=== PATIENT | male | born 1960 | race Two or more races ===

== ENCOUNTER → 2020-04-13 | Emergency (ER) | payer SELFPAY ==
[~2020-04-13] VITALS: Ht 172.7 cm; Wt 72.6 kg
[~2020-04-13] MED LIST: SODIUM CHLORIDE 0.9% 1,000 ML IV ONE; SODIUM CHLORIDE 0.9% 1,000 ML IVB ONE; THIAMINE 100mg/ml INJ (200mg/2ml VIAL) IV ONE
[2020-04-13 15:44] LABS: Basophils # (auto) 0 10 ^3/uL (0-0.2); Basophils % (auto) 0.1 % (0.0-2.0); Eosinophils # (auto) 0 10 ^3/uL (0-0.8); Hematocrit 42.8 % (41.0-53.0); Hemoglobin 14.6 g/dL (13.5-17.5); Lymphocytes # (auto) 1.3 10 ^3/uL (0.4-5.4); Lymphocytes % (auto) 10.4 % (10.0-50.0); Mean Corpuscular Hemoglobin 32.2 pg (28.0-32.0); Mean Corpuscular Hgb Conc. 34.2 g/dL (32.0-36.0); Mean Corpuscular Volume 94.2 fL (80.0-100.0); Monocytes # (auto) 0.4 10 ^3/uL (0-1.3); Monocytes % (auto) 3.1 % (0.0-12.0); Neutrophils # (auto) 11.1 10 ^3/uL (1.6-8.6); Neutrophils % (auto) 86.4 % (37.0-80.0); Platelet Count (auto) 191 10^3/uL (140-450); Red Blood Cells 4.54 10^6/uL (4.5-5.90); Red Cell Distribution Width 13.4 % (11.8-14.3); White Blood Cell 12.8 10^3/uL (4.4-10.8)
[2020-04-13 15:58] LABS: Albumin 3.5 g/dL (3.4-5.0); BUN/Creatinine Ratio 20.4; Potassium 3.5 mmol/L (3.5-5.1)
[2020-04-13 16:01] LABS: Bilirubin, Total 0.7 mg/dL (0.2-1.0)
[2020-04-13 18:00] VITALS: BP 109/63
== END | disposition home or self-care (01) ==
LOC: ER 12:16 → EDBD 12:16
DX: F10.129 Alcohol abuse with intoxication, unspecified (principal); R07.89 Other chest pain; D72.829 Elevated white blood cell count, unspecified; E86.0 Dehydration; F17.210 Nicotine dependence, cigarettes, uncomplicated; Y90.9 Presence of alcohol in blood, level not specified
CPT/HCPCS: 36415; 71045; 80053; 80320; 85025; 96361; 96374; 99285; J3411; J7030

== ENCOUNTER 2020-04-14 00:36 | Inpatient (IN) | payer MEDICAID, OTHER ==
[~2020-04-14] VITALS: Ht 167.6 cm; Wt 74.1 kg
[2020-04-14 01:09] LABS: Basophils # (auto) 0 10 ^3/uL (0-0.2); Basophils % (auto) 0.2 % (0.0-2.0); Eosinophils # (auto) 0 10 ^3/uL (0-0.8); Hematocrit 40.2 % (41.0-53.0); Lymphocytes # (auto) 1.6 10 ^3/uL (0.4-5.4); Lymphocytes % (auto) 12.2 % (10.0-50.0); Mean Corpuscular Hgb Conc. 34.9 g/dL (32.0-36.0); Mean Corpuscular Volume 94.7 fL (80.0-100.0); Monocytes # (auto) 0.5 10 ^3/uL (0-1.3); Neutrophils # (auto) 11.1 10 ^3/uL (1.6-8.6); Neutrophils % (auto) 83.6 % (37.0-80.0); Nucleated Red Blood Cells % 0.1 %; Platelet Count (auto) 189 10^3/uL (140-450); Red Blood Cells 4.25 10^6/uL (4.5-5.90); Red Cell Distribution Width 13.4 % (11.8-14.3); White Blood Cell 13.3 10^3/uL (4.4-10.8)
[2020-04-14 01:26] LABS: Albumin 3.3 g/dL (3.4-5.0); Anion Gap 16 (5-15); Blood Urea Nitrogen 16 mg/dL (7-18); Calcium 7.7 mg/dL (8.5-10.1); Carbon Dioxide 15 mmol/L (21-32); Chloride 105 mmol/L (98-107); GFR African American 120 mL/min; GFR Non-African American 99 mL/min; Glucose 81 mg/dL (74-106); Magnesium 2.1 mg/dL (1.6-2.6); Potassium 3.3 mmol/L (3.5-5.1); Sodium 136 mmol/L (136-145)
[2020-04-14 01:34] LABS: INR 1.03 (0.9-1.15); Partial Thromboplastin Time 25.2 sec (23.0-31.2)
[2020-04-14 01:40] LABS: Alanine Aminotransferase 36 U/L (16-61); Alkaline Phosphatase 70 U/L (45-117); Aspartate Aminotransferase 46 U/L (15-37); Bilirubin, Total 0.8 mg/dL (0.2-1.0); Total Protein 6.7 g/dL (6.4-8.2)
[2020-04-14 02:05] LABS: Amylase 108 U/L (25-115); Lipase 846 U/L (73-393)
[2020-04-14] MEDS ORDERED: IOHEXOL 350 MG/ML 100ML IJ ONE (02:15)
[2020-04-14 03:41] LABS: Urine Amorphous Crystal FEW /hpf (None Seen); Urine Bacteria FEW /hpf (None Seen); Urine Blood 1+ /uL (Negative); Urine Hyaline Cast FEW /lpf (0 - 2); Urine Mucus FEW (None Seen); Urine Specific Gravity 1.018 (1.001-1.035); Urine WBC 2 /hpf (0 - 3)
[2020-04-14 03:56] LABS: Amphetamine Screen, Urine NEGATIVE (NEGATIVE); Barbiturate Scree,Urine NEGATIVE (NEGATIVE); Benzodiazephine Screen, Urine NEGATIVE (NEGATIVE); Cannabinoid Screen, Urine NEGATIVE (NEGATIVE); Cocaine Screen, Urine NEGATIVE (NEGATIVE); Opiate Scree,Urine NEGATIVE (NEGATIVE); Phencyclidine Screen, Urine NEGATIVE (NEGATIVE)
[2020-04-14] MEDS ORDERED: THIAMINE INJ 100 MG in SODIUM CHLORIDE 0.9% 1,000 ML IV ONE (06:45)
[2020-04-14] MEDS ORDERED: MORPHINE SULFATE 4 MG/ML SYR/VIAL IV ONE (06:45)
[2020-04-14] MEDS ORDERED: ONDANSETRON HCL 4 MG/2 ML VIAL IV ONE (06:45)
[2020-04-14] MEDS ORDERED: PIPERACILLIN-TAZOB 3.375GM 100 ML IV ONE (06:45)
[2020-04-14] MEDS ORDERED: NITROGLYCERIN 0.4 MG SL TAB SL PRN (07:00)
[2020-04-14] MEDS ORDERED: MORPHINE SULF INJ 2 MG/ML SYRINGE 1ML IV PRN (07:00)
[2020-04-14] MEDS ORDERED: ACETAMINOPHEN 325 MG TAB PO PRN (07:00)
[2020-04-14] MEDS ORDERED: VANCOMYCIN 1GM/250ML 250 ML IV ONE (08:00)
[2020-04-14 08:26] LABS: Lactic Acid w/Reflex 3.8 mmol/L (0.4-2.0)
[2020-04-14] MEDS ORDERED: cefTRIAXone 1GM/50ML D5W 50 ML IV SCH (09:00)
[2020-04-14] MEDS: SODIUM CHLORIDE 0.9% 1,000 ML IV SCH ×2 (09:33→20:20)
[2020-04-14] MEDS: FAMOTIDINE 20 MG TAB PO SCH ×2 (09:52→21:27)
[2020-04-14] MEDS: chlordiazePOXIDE HCL 25 MG CAP PO PRN (09:57)
[2020-04-14] MEDS: FOLIC ACID 1 MG, MULTIPLE VITAMIN 10 ML, MAGNESIUM SULF SDV 50% 8 MEQ, THIAMINE INJ 100... INJ SCH ×5 (10:51)
[2020-04-14] MEDS ORDERED: VANCOMYCIN PER PHARMACY 0 MG IV SCH (14:30)
[2020-04-14] MEDS ORDERED: POTASSIUM EFFERVESENT TAB 25 MEQ PO ONE (14:30)
[2020-04-14] MEDS: PIPERACILLIN-TAZOB 3.375GM 100 ML IV SCH ×2 (18:36→23:08)
[2020-04-14] MEDS: VANCOMYCIN 1GM/250ML 250 ML IV SCH (20:28)
[2020-04-14] MEDS: MORPHINE SULFATE 4 MG/ML SYR/VIAL IV PRN (20:29)
[2020-04-14] MEDS: ONDANSETRON HCL 4 MG/2 ML VIAL IV PRN (21:27)
[2020-04-14] MEDS: TEMAZEPAM 15 MG CAP PO PRN (21:30)
[2020-04-14 22:00] VITALS: BP 134/73
[2020-04-15] MEDS: ONDANSETRON HCL 4 MG/2 ML VIAL IV PRN ×3 (04:38→15:50)
[2020-04-15 05:00] VITALS: BP 126/70
[2020-04-15] MEDS: PIPERACILLIN-TAZOB 3.375GM 100 ML IV SCH ×4 (05:10→23:13)
[2020-04-15] MEDS: MORPHINE SULFATE 4 MG/ML SYR/VIAL IV PRN ×2 (05:43→15:50)
[2020-04-15 07:15] LABS: Basophils # (auto) 0 10 ^3/uL (0-0.2); Basophils % (auto) 0.3 % (0.0-2.0); Eosinophils # (auto) 0 10 ^3/uL (0-0.8); Eosinophils % (auto) 0.4 % (0.0-7.0); Hematocrit 37.8 % (41.0-53.0); Hemoglobin 13.5 g/dL (13.5-17.5); Lymphocytes # (auto) 1.1 10 ^3/uL (0.4-5.4); Lymphocytes % (auto) 13.4 % (10.0-50.0); Mean Corpuscular Hemoglobin 33.5 pg (28.0-32.0); Mean Corpuscular Hgb Conc. 35.8 g/dL (32.0-36.0); Mean Corpuscular Volume 93.7 fL (80.0-100.0); Monocytes # (auto) 0.4 10 ^3/uL (0-1.3); Monocytes % (auto) 5.4 % (0.0-12.0); Neutrophils # (auto) 6.4 10 ^3/uL (1.6-8.6); Neutrophils % (auto) 80.5 % (37.0-80.0); Platelet Count (auto) 150 10^3/uL (140-450); Red Blood Cells 4.04 10^6/uL (4.5-5.90); Red Cell Distribution Width 13.2 % (11.8-14.3)
[2020-04-15 07:43] LABS: BUN/Creatinine Ratio 15.9; Calcium 7.8 mg/dL (8.5-10.1); Total Protein 5.9 g/dL (6.4-8.2)
[2020-04-15 08:00] VITALS: BP 130/57
[2020-04-15 09:00] VITALS: BP 130/57
[2020-04-15] MEDS: SODIUM CHLORIDE 0.9% 1,000 ML IV SCH ×2 (09:40→22:03)
[2020-04-15] MEDS: FAMOTIDINE 20 MG TAB PO SCH ×2 (09:49→21:59)
[2020-04-15] MEDS: VANCOMYCIN 1GM/250ML 250 ML IV SCH ×2 (09:49→20:28)
[2020-04-15] MEDS: HYDROcodone-ACET 5/325MG TAB PO PRN (09:50)
[2020-04-15] MEDS: FOLIC ACID 1 MG, MULTIPLE VITAMIN 10 ML, MAGNESIUM SULF SDV 50% 8 MEQ, THIAMINE INJ 100... INJ SCH ×5 (12:20)
[2020-04-15 13:00] VITALS: BP 148/81
[2020-04-15] MEDS ORDERED: PANTOPRAZOLE 40 MG TAB PO ONE (14:45)
[2020-04-15] MEDS ORDERED: POTASSIUM EFFERVESENT TAB 25 MEQ PO ONE (15:00)
[2020-04-15] MEDS: SUCRALFATE 1 GM/10 ML ORAL SUSP PO SCH ×2 (16:20→21:58)
[2020-04-15 17:04] VITALS: BP 121/88
[2020-04-15] MEDS: TEMAZEPAM 15 MG CAP PO PRN (21:58)
[2020-04-15] MEDS: PANTOPRAZOLE 40 MG TAB PO SCH (21:59)
[2020-04-15 22:00] VITALS: BP 129/78
[2020-04-16] MEDS: ONDANSETRON HCL 4 MG/2 ML VIAL IV PRN ×3 (03:01→13:49)
[2020-04-16] MEDS: MORPHINE SULFATE 4 MG/ML SYR/VIAL IV PRN ×2 (03:02→13:48)
[2020-04-16 05:00] VITALS: BP 142/73
[2020-04-16] MEDS: HYDROcodone-ACET 5/325MG TAB PO PRN ×2 (05:31→21:29)
[2020-04-16] MEDS: PIPERACILLIN-TAZOB 3.375GM 100 ML IV SCH ×3 (05:31→18:00)
[2020-04-16] MEDS: SUCRALFATE 1 GM/10 ML ORAL SUSP PO SCH ×4 (06:13→21:29)
[2020-04-16 08:00] VITALS: BP 137/80
[2020-04-16 08:01] LABS: Basophils # (auto) 0 10 ^3/uL (0-0.2); Basophils % (auto) 0.4 % (0.0-2.0); Eosinophils # (auto) 0.1 10 ^3/uL (0-0.8); Eosinophils % (auto) 0.7 % (0.0-7.0); Hematocrit 40.6 % (41.0-53.0); Hemoglobin 13.8 g/dL (13.5-17.5); Lymphocytes # (auto) 1.1 10 ^3/uL (0.4-5.4); Lymphocytes % (auto) 14.1 % (10.0-50.0); Mean Corpuscular Hemoglobin 32.1 pg (28.0-32.0); Mean Corpuscular Hgb Conc. 34.1 g/dL (32.0-36.0); Mean Corpuscular Volume 94.4 fL (80.0-100.0); Monocytes # (auto) 0.5 10 ^3/uL (0-1.3); Monocytes % (auto) 6.2 % (0.0-12.0); Neutrophils # (auto) 6.3 10 ^3/uL (1.6-8.6); Neutrophils % (auto) 78.6 % (37.0-80.0); Nucleated Red Blood Cells % 0.1 %; Platelet Count (auto) 155 10^3/uL (140-450); Red Cell Distribution Width 13.1 % (11.8-14.3)
[2020-04-16 08:37] LABS: BUN/Creatinine Ratio 8.7
[2020-04-16] MEDS: VANCOMYCIN 1GM/250ML 250 ML IV SCH ×3 (08:48→23:16)
[2020-04-16] MEDS: chlordiazePOXIDE HCL 25 MG CAP PO PRN (08:59)
[2020-04-16] MEDS: FAMOTIDINE 20 MG TAB PO SCH ×2 (08:59→21:29)
[2020-04-16] MEDS: PANTOPRAZOLE 40 MG TAB PO SCH ×2 (08:59→21:29)
[2020-04-16 09:00] VITALS: BP 137/80
[2020-04-16] MEDS ORDERED: POTASSIUM EFFERVESENT TAB 25 MEQ PO ONE (12:00)
[2020-04-16] MEDS: SODIUM CHLORIDE 0.9% 1,000 ML IV SCH (12:20)
[2020-04-16 13:00] VITALS: BP 128/76
[2020-04-16] MEDS: FOLIC ACID 1 MG, MULTIPLE VITAMIN 10 ML, MAGNESIUM SULF SDV 50% 8 MEQ, THIAMINE INJ 100... INJ SCH ×5 (14:27)
[2020-04-16 17:00] VITALS: BP 135/81
[2020-04-16] MEDS: TEMAZEPAM 15 MG CAP PO PRN (21:30)
[2020-04-16 22:00] VITALS: BP 114/72
[2020-04-17] MEDS: PIPERACILLIN-TAZOB 3.375GM 100 ML IV SCH ×4 (00:20→18:23)
[2020-04-17] MEDS: SODIUM CHLORIDE 0.9% 1,000 ML IV SCH ×2 (00:34→15:00)
[2020-04-17] MEDS: ONDANSETRON HCL 4 MG/2 ML VIAL IV PRN ×2 (02:48→09:44)
[2020-04-17] MEDS: MORPHINE SULFATE 4 MG/ML SYR/VIAL IV PRN ×2 (02:49→09:44)
[2020-04-17 05:22] VITALS: BP 135/82
[2020-04-17] MEDS: SUCRALFATE 1 GM/10 ML ORAL SUSP PO SCH ×4 (06:33→22:01)
[2020-04-17 07:01] LABS: Basophils # (auto) 0 10 ^3/uL (0-0.2); Basophils % (auto) 0.4 % (0.0-2.0); Eosinophils # (auto) 0.1 10 ^3/uL (0-0.8); Eosinophils % (auto) 1.3 % (0.0-7.0); Hematocrit 41.7 % (41.0-53.0); Lymphocytes # (auto) 1.1 10 ^3/uL (0.4-5.4); Lymphocytes % (auto) 16.3 % (10.0-50.0); Mean Corpuscular Hemoglobin 31.7 pg (28.0-32.0); Mean Corpuscular Hgb Conc. 33.6 g/dL (32.0-36.0); Mean Corpuscular Volume 94.4 fL (80.0-100.0); Monocytes # (auto) 0.3 10 ^3/uL (0-1.3); Monocytes % (auto) 4.9 % (0.0-12.0); Neutrophils # (auto) 5.1 10 ^3/uL (1.6-8.6); Neutrophils % (auto) 77.1 % (37.0-80.0); Nucleated Red Blood Cells % 0.1 %; Platelet Count (auto) 165 10^3/uL (140-450); Red Blood Cells 4.42 10^6/uL (4.5-5.90); Red Cell Distribution Width 13.3 % (11.8-14.3); White Blood Cell 6.6 10^3/uL (4.4-10.8)
[2020-04-17 07:36] LABS: BUN/Creatinine Ratio 7.2; Calcium 8.1 mg/dL (8.5-10.1)
[2020-04-17 07:59] LABS: Potassium 2.7 mmol/L (3.5-5.1)
[2020-04-17 08:00] VITALS: BP 125/80
[2020-04-17] MEDS ORDERED: POTASSIUM CHL 20 Meq TABLET PO ONE ×2 (08:30→15:00)
[2020-04-17 09:00] VITALS: BP 125/80
[2020-04-17] MEDS: VANCOMYCIN 1GM/250ML 250 ML IV SCH ×3 (09:43→23:49)
[2020-04-17] MEDS: PANTOPRAZOLE 40 MG TAB PO SCH ×2 (09:44→22:01)
[2020-04-17] MEDS: FAMOTIDINE 20 MG TAB PO SCH ×2 (09:44→22:01)
[2020-04-17 13:00] VITALS: BP 144/59
[2020-04-17] MEDS: HYDROcodone-ACET 5/325MG TAB PO PRN (13:39)
[2020-04-17 14:35] LABS: BUN/Creatinine Ratio 6.4
[2020-04-17 17:00] VITALS: BP 133/75
[2020-04-17] MEDS: FOLIC ACID 1 MG, MULTIPLE VITAMIN 10 ML, MAGNESIUM SULF SDV 50% 8 MEQ, THIAMINE INJ 100... INJ SCH ×5 (17:00)
[2020-04-17 22:00] VITALS: BP 146/80
[2020-04-17] MEDS: TEMAZEPAM 15 MG CAP PO PRN (22:14)
[2020-04-18] MEDS: PIPERACILLIN-TAZOB 3.375GM 100 ML IV SCH ×2 (00:01→05:50)
[2020-04-18 05:00] VITALS: BP 156/95
[2020-04-18] MEDS: SODIUM CHLORIDE 0.9% 1,000 ML IV SCH ×2 (05:50→17:40)
[2020-04-18] MEDS: SUCRALFATE 1 GM/10 ML ORAL SUSP PO SCH ×4 (06:20→22:00)
[2020-04-18 06:48] LABS: Basophils # (auto) 0 10 ^3/uL (0-0.2); Basophils % (auto) 0.5 % (0.0-2.0); Eosinophils # (auto) 0.1 10 ^3/uL (0-0.8); Eosinophils % (auto) 1.1 % (0.0-7.0); Hematocrit 42.2 % (41.0-53.0); Hemoglobin 14.8 g/dL (13.5-17.5); Lymphocytes # (auto) 1.4 10 ^3/uL (0.4-5.4); Lymphocytes % (auto) 21.2 % (10.0-50.0); Mean Corpuscular Hemoglobin 32.8 pg (28.0-32.0); Mean Corpuscular Hgb Conc. 35.1 g/dL (32.0-36.0); Mean Corpuscular Volume 93.3 fL (80.0-100.0); Monocytes # (auto) 0.4 10 ^3/uL (0-1.3); Monocytes % (auto) 6.1 % (0.0-12.0); Neutrophils # (auto) 4.5 10 ^3/uL (1.6-8.6); Neutrophils % (auto) 71.1 % (37.0-80.0); Nucleated Red Blood Cells % 0.1 %; Platelet Count (auto) 184 10^3/uL (140-450); Red Blood Cells 4.52 10^6/uL (4.5-5.90); White Blood Cell 6.4 10^3/uL (4.4-10.8)
[2020-04-18 07:20] LABS: Albumin 3.2 g/dL (3.4-5.0); BUN/Creatinine Ratio 6.3; Bilirubin, Total 0.7 mg/dL (0.2-1.0); Calcium 8.1 mg/dL (8.5-10.1); Total Protein 6.6 g/dL (6.4-8.2)
[2020-04-18 07:35] LABS: Potassium 2.9 mmol/L (3.5-5.1)
[2020-04-18] MEDS: VANCOMYCIN 1GM/250ML 250 ML IV SCH (07:42)
[2020-04-18] MEDS ORDERED: POTASSIUM CHL 20 Meq TABLET PO ONE (08:30)
[2020-04-18 09:00] VITALS: BP 140/88
[2020-04-18] MEDS: FAMOTIDINE 20 MG TAB PO SCH ×2 (09:56→22:00)
[2020-04-18] MEDS: PANTOPRAZOLE 40 MG TAB PO SCH ×2 (09:56→22:00)
[2020-04-18] MEDS: HYDROcodone-ACET 5/325MG TAB PO PRN (09:57)
[2020-04-18] MEDS: levoFLOXacin 500MG 100 ML IV SCH (11:32)
[2020-04-18] MEDS: FOLIC ACID 1 MG, MULTIPLE VITAMIN 10 ML, MAGNESIUM SULF SDV 50% 8 MEQ, THIAMINE INJ 100... INJ SCH ×5 (13:28)
[2020-04-18] MEDS: MORPHINE SULFATE 4 MG/ML SYR/VIAL IV PRN (13:29)
[2020-04-18] MEDS: metroNIDAZOLE 500MG/100ML 100 ML IV SCH ×2 (13:29→22:00)
[2020-04-18] MEDS: ONDANSETRON HCL 4 MG/2 ML VIAL IV PRN (13:29)
[2020-04-18 14:20] VITALS: BP 105/57
[2020-04-18] MEDS: TEMAZEPAM 15 MG CAP PO PRN (22:00)
[2020-04-18] MEDS ORDERED: LOPERAMIDE HCL 2 MG CAP PO PRN (22:45)
[2020-04-19 05:00] VITALS: BP 131/68
[2020-04-19] MEDS: metroNIDAZOLE 500MG/100ML 100 ML IV SCH ×3 (06:00→21:42)
[2020-04-19] MEDS: SODIUM CHLORIDE 0.9% 1,000 ML IV SCH (06:33)
[2020-04-19] MEDS: SUCRALFATE 1 GM/10 ML ORAL SUSP PO SCH ×4 (06:34→21:42)
[2020-04-19 06:59] LABS: Basophils # (auto) 0 10 ^3/uL (0-0.2); Basophils % (auto) 0.3 % (0.0-2.0); Eosinophils # (auto) 0 10 ^3/uL (0-0.8); Eosinophils % (auto) 0.6 % (0.0-7.0); Hematocrit 42.7 % (41.0-53.0); Hemoglobin 14.9 g/dL (13.5-17.5); Lymphocytes # (auto) 1.4 10 ^3/uL (0.4-5.4); Lymphocytes % (auto) 18.4 % (10.0-50.0); Mean Corpuscular Hemoglobin 32.9 pg (28.0-32.0); Mean Corpuscular Hgb Conc. 34.8 g/dL (32.0-36.0); Mean Corpuscular Volume 94.5 fL (80.0-100.0); Monocytes # (auto) 0.7 10 ^3/uL (0-1.3); Monocytes % (auto) 9.1 % (0.0-12.0); Neutrophils # (auto) 5.5 10 ^3/uL (1.6-8.6); Neutrophils % (auto) 71.6 % (37.0-80.0); Nucleated Red Blood Cells % 0.1 %; Platelet Count (auto) 178 10^3/uL (140-450); Red Blood Cells 4.52 10^6/uL (4.5-5.90); Red Cell Distribution Width 13.2 % (11.8-14.3); White Blood Cell 7.7 10^3/uL (4.4-10.8)
[2020-04-19 07:15] LABS: Potassium 3.2 mmol/L (3.5-5.1)
[2020-04-19 07:23] LABS: Calcium 8.6 mg/dL (8.5-10.1)
[2020-04-19 09:00] VITALS: BP 140/81
[2020-04-19] MEDS ORDERED: LIDOCAINE VISCOUS 2% 15ML UD ONE (09:04)
[2020-04-19] MEDS ORDERED: SODIUM CHLORIDE LOCK 10 ML ONE (09:04)
[2020-04-19] MEDS ORDERED: POTASSIUM CHLORIDE 20 MEQ, LIDOCAINE 1% (LOCAL ANESTH.) 2 ML in SODIUM CHL 0.9% 100 ML IV ONE (09:45)
[2020-04-19] MEDS: PANTOPRAZOLE 40 MG TAB PO SCH ×2 (10:41→21:42)
[2020-04-19] MEDS: levoFLOXacin 500MG 100 ML IV SCH (10:41)
[2020-04-19] MEDS: FAMOTIDINE 20 MG TAB PO SCH ×2 (10:41→21:42)
[2020-04-19] MEDS: FOLIC ACID 1 MG, MULTIPLE VITAMIN 10 ML, MAGNESIUM SULF SDV 50% 8 MEQ, THIAMINE INJ 100... INJ SCH ×5 (12:23)
[2020-04-19 13:00] VITALS: BP 142/84
[2020-04-19] MEDS: fentaNYL CITRATE 100 MCG/2 ML VL ONE ×2 (15:56→15:58)
[2020-04-19] MEDS: diphenhdrAMINE HCL 50 MG/1 ML VL ONE ×2 (15:56→15:58)
[2020-04-19] MEDS: MIDAZOLAM HCL 5 MG/ML-1ML VIAL ONE ×3 (15:56→15:59)
[2020-04-19 17:00] VITALS: BP 129/78
[2020-04-19] MEDS: HYDROcodone-ACET 5/325MG TAB PO PRN (21:42)
[2020-04-19 21:54] VITALS: BP 140/79
[2020-04-20] MEDS: TEMAZEPAM 15 MG CAP PO PRN ×2 (00:08→22:41)
[2020-04-20 04:53] VITALS: BP 133/85
[2020-04-20 06:10] LABS: Basophils # (auto) 0 10 ^3/uL (0-0.2); Basophils % (auto) 0.3 % (0.0-2.0); Eosinophils # (auto) 0.1 10 ^3/uL (0-0.8); Eosinophils % (auto) 1.2 % (0.0-7.0); Hematocrit 40.8 % (41.0-53.0); Hemoglobin 14.2 g/dL (13.5-17.5); Lymphocytes # (auto) 1.4 10 ^3/uL (0.4-5.4); Lymphocytes % (auto) 20.2 % (10.0-50.0); Mean Corpuscular Hemoglobin 32.7 pg (28.0-32.0); Mean Corpuscular Hgb Conc. 34.9 g/dL (32.0-36.0); Mean Corpuscular Volume 93.8 fL (80.0-100.0); Monocytes # (auto) 0.8 10 ^3/uL (0-1.3); Monocytes % (auto) 11.2 % (0.0-12.0); Neutrophils # (auto) 4.7 10 ^3/uL (1.6-8.6); Neutrophils % (auto) 67.1 % (37.0-80.0); Platelet Count (auto) 173 10^3/uL (140-450); Red Blood Cells 4.35 10^6/uL (4.5-5.90); Red Cell Distribution Width 13.5 % (11.8-14.3); White Blood Cell 7.1 10^3/uL (4.4-10.8)
[2020-04-20] MEDS: SODIUM CHLORIDE 0.9% 1,000 ML IV SCH ×3 (06:23→23:00)
[2020-04-20] MEDS: metroNIDAZOLE 500MG/100ML 100 ML IV SCH ×3 (06:23→22:41)
[2020-04-20] MEDS: SUCRALFATE 1 GM/10 ML ORAL SUSP PO SCH ×4 (06:24→22:41)
[2020-04-20 06:30] LABS: Potassium 3.4 mmol/L (3.5-5.1)
[2020-04-20 06:42] LABS: BUN/Creatinine Ratio 6.1; Calcium 8.6 mg/dL (8.5-10.1)
[2020-04-20 09:00] VITALS: BP 148/89
[2020-04-20] MEDS: PANTOPRAZOLE 40 MG TAB PO SCH ×2 (11:02→22:41)
[2020-04-20] MEDS: FAMOTIDINE 20 MG TAB PO SCH ×2 (11:02→22:41)
[2020-04-20] MEDS: levoFLOXacin 500MG 100 ML IV SCH (11:02)
[2020-04-20 12:01] VITALS: BP 131/83
[2020-04-20] MEDS ORDERED: POTASSIUM CHL 20 Meq TABLET PO ONE (19:15)
[2020-04-20 21:35] VITALS: BP 128/65
[2020-04-21 05:00] VITALS: BP 129/83
[2020-04-21] MEDS: SUCRALFATE 1 GM/10 ML ORAL SUSP PO SCH (06:31)
[2020-04-21] MEDS: metroNIDAZOLE 500MG/100ML 100 ML IV SCH (06:31)
[2020-04-21 07:06] LABS: Albumin 3.3 g/dL (3.4-5.0); Calcium 8.8 mg/dL (8.5-10.1); Potassium 3.4 mmol/L (3.5-5.1)
[2020-04-21 07:11] LABS: BUN/Creatinine Ratio 6.7; Bilirubin, Total 0.6 mg/dL (0.2-1.0); Total Protein 6.6 g/dL (6.4-8.2)
[2020-04-21 09:03] VITALS: BP 140/80
[2020-04-21 12:30] VITALS: BP 119/83
[2020-04-21] MEDS ORDERED: PANT40T PO (14:00)
[2020-04-21] MEDS ORDERED: SUCR1SUS10 PO (14:00)
[2020-04-21] MEDS ORDERED: POTASSIUM CHL 20 Meq TABLET PO ONE (14:00)
== END 2020-04-21 17:20 | disposition home or self-care (01) | DRG 720 ==
LOC: ER 00:40 → TELE 00:41 → TELE-WESTW 16:41
PROVIDERS: ADMIT Nurse Practitioner; ATTEND Internal Medicine Nephrology
PROC: 0DB38ZX Excision of Lower Esophagus, Via Natural or Artificial Opening Endoscopic, Diagnostic (ICD-10-PCS; 2020-04-19)
PROC: 0DB98ZX Excision of Duodenum, Via Natural or Artificial Opening Endoscopic, Diagnostic (ICD-10-PCS; 2020-04-19)
PROC: 0DB68ZX Excision of Stomach, Via Natural or Artificial Opening Endoscopic, Diagnostic (ICD-10-PCS; principal; 2020-04-19 15:53)
DX: A41.9 Sepsis, unspecified organism (principal); N17.0 Acute kidney failure with tubular necrosis; K85.20 Alcohol induced acute pancreatitis without necrosis or infection; F10.121 Alcohol abuse with intoxication delirium; E83.51 Hypocalcemia; E87.6 Hypokalemia; K76.0 Fatty (change of) liver, not elsewhere classified; F17.210 Nicotine dependence, cigarettes, uncomplicated; Z87.442 Personal history of urinary calculi; K44.9 Diaphragmatic hernia without obstruction or gangrene; K25.9 Gastric ulcer, unspecified as acute or chronic, without hemorrhage or perforation; K29.80 Duodenitis without bleeding; J98.11 Atelectasis; M48.07 Spinal stenosis, lumbosacral region; M51.27 Other intervertebral disc displacement, lumbosacral region; N28.1 Cyst of kidney, acquired; T50.8X5A Adverse effect of diagnostic agents, initial encounter; Z98.1 Arthrodesis status; K30 Functional dyspepsia; K22.10 Ulcer of esophagus without bleeding; R79.1 Abnormal coagulation profile; Y90.6 Blood alcohol level of 120-199 mg/100 ml
CPT/HCPCS: 36415; 43239; 71045; 71275; 74176; 76705; 80048; 80053; 80202; 80307; 80320; 81001; 82150; 82550; 83605; 83690; 83735; 83880; 84443; 84484; 85025; 85379; 85610; 85730; 87040; 87070; 87086; 87205; 93005; 93970; G0378; J0696; J1956; J2001; J2250; J2405; J2543; J3490